=== PATIENT | female | born 1955 | race Caucasian/White ===

== ENCOUNTER → 2016-08-06 | Outpatient (CLI) | payer BC ==
[~2016-08-06] MED LIST: ASPEC81 PO; BUPR75TA20 PO; COEN150C PO; FLUT1INH INH; HYDR200T5 PO; IPRASOL4 INH; MULT-506 PO; OMEG10007 PO; OMEP40CA PO; PRAV20TA PO; SYMIN160 INH; VITA400C15 PO; VTMD1000 PO
--- NOTE | 2016-08-06 12:46 | MAMMOGRAPHY REPORT ---
ULTRASOUND OF RIGHT BREAST: 08/06/2016 CLINICAL HISTORY: Callback from screening mammogram for right breast mass. COMPARISON: Comparison is made to exams dated: 07/29/2016 mammogram, 07/23/2015 mammogram, 07/17/20 14 mammogram, 07/03/2013 mammogram, and 06/28/2012 mammogram - [facility]. TECHNIQUE: Real-time targeted ultrasound of the right breast was performed. FINDINGS: Real-time, high-resolution targeted ultrasound was performed of the right upper inner quadrant at th e site of the mammographic mass seen on the recent screening mammogram. In the right breast at 1:00 , 9 cm from the nipple, there is a subdermal oval anechoic circumscribed mass which measures 5 x 3 x 6 mm. This corresponds with the circumscribed mammographic mass and is consistent with a benign cy st. IMPRESSION: ACR BI-RADS CATEGORY 2: BENIGN Benign 6 mm cyst in the right breast at 1:00, which corresponds with the mammographic mass. There i s no sonographic evidence of malignancy. A 1 year screening mammogram is recommended. The patient was verbally notified of the results. Magda Mullins M.D. /:08/06/2016 09:46:36 Gold Miner: Yumi FREIRE(José Luis)(M), [facility] letter sent: Normal 1/2 BI-RADS Code: ACR BI-RADS Category 2: Benign
== END | disposition home or self-care (01) ==
LOC: C.MAMM 09:27
PROVIDERS: ATTEND Obstetrics & Gynecology
DX: N63 Unspecified lump in breast (principal); N60.01 Solitary cyst of right breast

== ENCOUNTER → 2016-08-12 | Outpatient (CLI) | payer BC | END | disposition home or self-care (01) | LOC: C.PAPS 11:31 | PROVIDERS: ATTEND Obstetrics & Gynecology | DX: Z01.419 Encounter for gynecological examination (general) (routine) without abnormal findings (principal); R87.610 Atypical squamous cells of undetermined significance on cytologic smear of cervix (ASC-US) ==

== ENCOUNTER → 2017-04-20 | Outpatient (CLI) | payer BC ==
[~2017-04-20] MED LIST changes: +GADAVIST IV PRN
--- NOTE | 2017-04-20 14:50 | DIAGNOSTIC IMAGING REPORT ---
BRAIN COMBO FOR IAC CLINICAL HISTORY: 61 years-old Female presenting with ABN NEURO EXAM, unable to hear high frequency sounds, dizziness after taking doxycycline for tick bite in December. TECHNIQUE: Multisequence, multiplanar MR imaging of the brain was performed before and after the administration of intravenous contrast. IV contrast: 6.6 mL of Gadavist. COMPARISON: None. FINDINGS: Internal auditory canals normal. No masslike thickening of the nerve roots. Normal signal intensity of the cochlea and semicircular canals. No fluid within the mastoid air cells. Paranasal sinuses grossly clear. Ventricles and sulci normal in size. Single focus of T2/FLAIR hyperintensity in the right subcortical white matter likely age-related. No mass effect or midline shift. No restricted diffusion to suggest acute ischemia. No hemorrhage. No extra-axial fluid collection. T2 skull base flow voids preserved. Bone marrow signal intensity within the calvarium within normal limits. IMPRESSION: 1. No abnormality of the internal auditory canals or inner structures. No acute intracranial pathology. No abnormal enhancement. Electronically signed by: Junior Renee M.D. 04/20/2017 2:49 PM Dictated Date/Time: 04/20/2017 2:43 PM
== END | disposition home or self-care (01) ==
LOC: C.MRI 12:59
DX: R51 Headache (principal); R42 Dizziness and giddiness

== ENCOUNTER → 2017-08-02 | Outpatient (CLI) | payer OTHER ==
[~2017-08-02] MED LIST changes: +BUPR-102 PO; -GADAVIST IV PRN; +IPRA-64 INH; -IPRASOL4 INH; +NAPR-22 PO; +RANI150T85 PO
--- NOTE | 2017-08-03 14:56 | MAMMOGRAPHY REPORT ---
BILATERAL DIGITAL SCREENING MAMMOGRAM TOMOSYNTHESIS WITH CAD: 08/02/2017 CLINICAL HISTORY: Routine screening. TECHNIQUE: Breast tomosynthesis in addition to standard 2D mammography was performed. Current study was also evaluated with a Computer Aided Detection (CAD) system. COMPARISON: Comparison is made to exams dated: 08/06/2016 ultrasound, 07/29/2016 mammogram, 07/23/2015 mammogram, 07/04/2014 mammogram, 07/03/2013 mammogram, and 06/28/2012 mammogram - [facility]. BREAST COMPOSITION: The tissue of both breasts is heterogeneously dense, which may obscure small mas ses. FINDINGS: There are stable round and punctate scattered and loosely grouped benign-appearing microcal cifications bilaterally. No suspicious mass, architectural distortion or cluster of new, suspicious microcalcifications is seen. IMPRESSION: ACR BI-RADS CATEGORY 1: NEGATIVE There is no mammographic evidence of malignancy. A 1 year screening mammogram is recommended. The pa tient will receive written notification of the results. Approximately 10% of breast cancers are not detected with mammography. A negative mammographic report should not delay biopsy if a clinically suggestive mass is present. Elise Whitley M.D. ay/:08/02/2017 14:30:18 Studio Potter: Leland FREIRE(José Luis)(M), [facility] letter sent: Normal 1/2 BI-RADS Code: ACR BI-RADS Category 1: Negative
== END | disposition home or self-care (01) ==
LOC: C.MAMM 09:18
PROVIDERS: ATTEND Obstetrics & Gynecology
DX: Z12.31 Encounter for screening mammogram for malignant neoplasm of breast (principal)

== ENCOUNTER → 2017-08-17 | Outpatient (CLI) | payer OTHER ==
[~2017-08-17] MED LIST changes: -BUPR-102 PO; -IPRA-64 INH; +IPRASOL4 INH; -NAPR-22 PO; -RANI150T85 PO
== END | disposition home or self-care (01) ==
LOC: C.PAPS 15:40
PROVIDERS: ATTEND Obstetrics & Gynecology
DX: Z12.4 Encounter for screening for malignant neoplasm of cervix (principal); Z11.51 Encounter for screening for human papillomavirus (HPV); Z78.0 Asymptomatic menopausal state